=== PATIENT | male | born 1995 | race Caucasian/White ===

== ENCOUNTER 2020-07-07 18:46 | Emergency (ER) | payer OTHER ==
[~2020-07-07] VITALS: Ht 182.9 cm; Wt 78.7 kg
[2020-07-07] MEDS ORDERED: ZOLO50TA PO (18:54)
[2020-07-07] MEDS ORDERED: CEPHALEXIN 500 MG CAP PO ONE (20:30)
[2020-07-07] MEDS ORDERED: DERMABOND TOPICAL SKIN ADHESIVE TOP ONE (20:30)
[2020-07-07] MEDS ORDERED: KEFL500C17 PO (21:32)
[2020-07-07 21:37] VITALS: BP 126/70
== END 2020-07-07 21:38 | disposition home or self-care (01) ==
LOC: M ED 18:46
DX: S61.210A Laceration without foreign body of right index finger without damage to nail, initial encounter (principal); X58.XXXA Exposure to other specified factors, initial encounter; Y92.73 Farm field as the place of occurrence of the external cause; Z79.899 Other long term (current) drug therapy; Z88.0 Allergy status to penicillin; Z88.2 Allergy status to sulfonamides